=== PATIENT | male | born 1990 | race Caucasian/White ===

== ENCOUNTER 2024-12-15 08:44 | Emergency (ER) | payer OTHER ==
[~2024-12-15] VITALS: Ht 172.7 cm; Wt 68.0 kg
[2024-12-15 08:50] VITALS: PULSE 72; RESP 16; TEMP 98.1
[2024-12-15] MEDS: ONDANSETRON HCL INJ 2MG/ML 2ML 2 MG/ML VIAL IV STA (09:38)
[2024-12-15] MEDS: SODIUM CHLORIDE 0.9% 1000ML 1,000 ML IV STA (09:38)
[2024-12-15] MEDS: DIPHENHYDRAMINE HCL INJ 50 MG/ML VIAL IV ONE (09:38)
[2024-12-15] MEDS: DIAZEPAM INJ 5 MG/ML 2 ML IV ONE (09:39)
[2024-12-15] MEDS ORDERED: VALIUM5 MG PO ×2 (11:04→11:05)
[2024-12-15 12:05] VITALS: BP 127/76; PULSE 76; RESP 12; O2SAT 100
== END 2024-12-15 12:10 | disposition home or self-care (01) ==
LOC: ER 08:48
DX: R42 Dizziness and giddiness (principal); R11.2 Nausea with vomiting, unspecified; F17.210 Nicotine dependence, cigarettes, uncomplicated
CPT/HCPCS: 70450; 99284; J1200; J2405; J3360; J7030